=== PATIENT | male | born 1985 | race Asian ===

== ENCOUNTER 2023-06-26 03:01 | Inpatient (IN) | payer OTHER ==
[~2023-06-26] VITALS: Ht 165.1 cm; Wt 131.5 kg
[2023-06-26 03:55] LABS: PH,URINE DRUG SCREEN 5.5 (5.0-8.0)
[2023-06-26 04:01] LABS: ALCOHOL, URINE DRUG SCREEN POSITIVE (NEGATIVE); AMPHET/METH SCREEN,URINE NEGATIVE (NEGATIVE); BARBITURATE SCREEN, URINE NEGATIVE (NEGATIVE); BENZODIAZEPINES SCREEN,URINE NEGATIVE (NEGATIVE); CANNABINOID SCREEN,URINE NEGATIVE (NEGATIVE); COCAINE SCREEN,URINE NEGATIVE (NEGATIVE); METHADONE SCREEN, URINE NEGATIVE (NEGATIVE); OPIATE SCREEN,URINE NEGATIVE (NEGATIVE); PHENCYCLIDINE SCREEN,URINE NEGATIVE (NEGATIVE)
[2023-06-26 04:19] LABS: COVID AG,FIA SOURCE NASAL SWAB
[2023-06-26 04:38] LABS: SARS-COV2 (COVID) ANTIGEN,FIA Negative (Negative)
[2023-06-26 04:41] LABS: BASOPHILS % (AUTO) 1.1 % (0.0-2.0); EOSINOPHILS % (AUTO) 1.8 % (1.0-6.0); HEMATOCRIT 42.1 % (41-53); HEMOGLOBIN 14.5 g/dL (13.5-17.5); LYMPHOCYTES # (AUTO) 2.1 K/uL (1.0-4.8); LYMPHOCYTES % (AUTO) 27.7 % (22.0-44.0); MEAN CORPUSCULAR HEMOGLOBIN 31.2 pg (26.0-34.0); MEAN CORPUSCULAR HGB CONC 34.5 G/dL (31.0-37.0); MEAN CORPUSCULAR VOLUME 90 fL (80-100); MONOCYTES # (AUTO) 0.5 K/uL (0.1-1.0); MONOCYTES % (AUTO) 6.4 % (2.0-9.0); NEUTROPHILS # (AUTO) 4.9 K/uL (1.8-7.7); PLATELET COUNT (AUTO) 327 K/uL (150-450); RED BLOOD CELL COUNT(AUTO) 4.66 MIL/uL (4.50-5.90); WHITE BLOOD COUNT (AUTO) 7.7 K/uL (4.5-11.0)
[2023-06-26 04:49] LABS: ANION GAP 14 mmol/L (8-16); CALCIUM, TOTAL 9.6 mg/dL (8.8-10.5); CARBON DIOXIDE 23 mmol/L (22-29); CHLORIDE 99 mmol/L (98-107); CREATININE 1.21 mg/dL (0.60-1.30); GLOMERULAR FILTR. RATE CALC > 60 mL/min (>60); GLUCOSE,RANDOM 106 mg/dL (70-110); POTASSIUM 3.7 mmol/L (3.5-5.1); SODIUM SERUM 136 mmol/L (136-145); UREA NITROGEN, BLOOD 17 mg/dL (7-18)
[2023-06-26 04:50] LABS: ALCOHOL, BLOOD (SERUM) 13 mg/dL (0-10)
[2023-06-26 04:55] LABS: ALANINE AMINOTRANSFERASE 65 U/L (12-78); ALBUMIN 3.9 g/dL (3.4-5.0); ALKALINE PHOSPHATASE 79 U/L (46-116); ASPARTATE AMINOTRANSFERASE 31 U/L (15-37); BILIRUBIN,TOTAL 0.3 mg/dL (0.1-1.0); TOTAL PROTEIN, SERUM 7.9 g/dL (6.4-8.2)
[2023-06-26] MEDS ORDERED: ZOLPIDEM TARTRATE 10 MG TABLET PO PRN (05:00)
[2023-06-26] MEDS ORDERED: OLANZapine 5 MG RAPDIS TABLET PO PRN (05:00)
[2023-06-26] MEDS ORDERED: LORazepam 2 MG TABLET PO PRN (05:00)
[2023-06-26] MEDS ORDERED: FLUO10CA24 PO (06:45)
[2023-06-26] MEDS ORDERED: LISI-894 PO (06:45)
[2023-06-26] MEDS ORDERED: FLUO20CA36 PO (16:14)
[2023-06-26] MEDS ORDERED: PARoxetine HCL 20 MG TABLET PO ONE (16:15)
[2023-06-26] MEDS ORDERED: HydrOXYzine PAMOATE 50 MG CAPSULE PO PRN (17:00)
[2023-06-26] MEDS ORDERED: MAGNESIUM HYDROXIDE SUSPENSION 30 ML UDCUP PO PRN (17:00)
[2023-06-26] MEDS ORDERED: ACETAMINOPHEN 325 MG TABLET PO PRN (17:00)
[2023-06-26] MEDS ORDERED: TUBERCULIN, PURIFIED PROTEIN DERIVATIVE 5 TU/0.1 ML SYRINGE ID ONE (17:00)
[2023-06-26] MEDS ORDERED: PROMETHAZINE HCL 25 MG TABLET PO PRN (17:00)
[2023-06-26] MEDS ORDERED: GuaiFENesin/D-METHORPHAN [SUGAR-FREE] 200-20MG/10 ML SYRUP UDCUP PO PRN (17:00)
[2023-06-26] MEDS ORDERED: MAG HYDROX/ALUMINUM HYD/SIMETH ES 30 ML SUSPENSION UDCUP PO PRN (17:00)
[2023-06-26] MEDS: THIAMINE 100 MG TABLET PO SCH (17:09)
[2023-06-26] MEDS: LISINOPRIL 20 MG TABLET PO SCH (17:56)
[2023-06-26 18:07] VITALS: BP 138/62; PULSE 84; RESP 18; TEMP 98.5; O2SAT 98
[2023-06-26] MEDS ORDERED: MELATONIN 5 MG TABLET PO SCH (21:00)
[2023-06-27 07:17] LABS: CHOL/HDL RATIO 3.2 (4.2-7.3); FREE T4 (FREE THYROXINE) 1.09 ng/dL (0.76-1.46); THYROID STIMULATING HORMONE 1.69 uIU/mL (0.36-3.74)
[2023-06-27 07:19] LABS: HEMOGLOBIN A1C 4.9 % (3.8-5.6)
[2023-06-27] MEDS ORDERED: OMEGA-3/DHA/EPA/FISH OIL 1,000 MG CAPSULE PO SCH (09:00)
[2023-06-27] MEDS ORDERED: LISINOPRIL 20 MG TABLET PO SCH (09:00)
[2023-06-27] MEDS ORDERED: PARoxetine HCL 20 MG TABLET PO SCH (09:00)
[2023-06-27] MEDS ORDERED: MULTIVITAMINS WITH MINERALS, THERAPEUTIC TABLET PO SCH (09:00)
[2023-06-27] MEDS ORDERED: FOLIC ACID 1 MG TABLET PO SCH (09:00)
[2023-06-27] MEDS: LISINOPRIL 20 MG TABLET PO SCH (09:59)
[2023-06-27] MEDS: THIAMINE 100 MG TABLET PO SCH ×2 (10:00→16:27)
[2023-06-27 10:58] VITALS: BP 155/98; PULSE 81; RESP 18; TEMP 97.9; O2SAT 97
[2023-06-27 15:02] LABS: COVID AG,FIA SOURCE NASAL SWAB
[2023-06-27 15:32] LABS: SARS-COV2 (COVID) ANTIGEN,FIA Negative (Negative)
[2023-06-27] MEDS ORDERED: MELA5TAB40 PO (15:57)
[2023-06-27] MEDS ORDERED: PARO-37 PO (15:57)
[2023-06-27] MEDS ORDERED: OMEG-135 PO (15:57)
[2023-06-28] MEDS ORDERED: LISINOPRIL 20 MG TABLET PO SCH (09:00)
== END 2023-06-27 18:27 | disposition short-term general hospital (02) | DRG 885 ==
LOC: EMS 03:02 → B3A 09:02 → UNDOADMIN 09:02 → 3EI 09:02 → B3A 23:00
PROVIDERS: ADMIT Psychiatry & Neurology Psychiatry; ATTEND Psychiatry & Neurology Psychiatry
DX: F33.2 Major depressive disorder, recurrent severe without psychotic features (principal); R45.851 Suicidal ideations; I10 Essential (primary) hypertension; F41.9 Anxiety disorder, unspecified; E78.1 Pure hyperglyceridemia; Z20.822 Contact with and (suspected) exposure to COVID-19; G47.33 Obstructive sleep apnea (adult) (pediatric); Z90.49 Acquired absence of other specified parts of digestive tract; Z79.899 Other long term (current) drug therapy
CPT/HCPCS: 80053; 80061; 80307; 83036; 84439; 84443; 85025; 86592; 99285; G0480